=== PATIENT | female | born 1995 | race Caucasian/White ===

== ENCOUNTER 2024-08-27 14:20 | Outpatient (CLI) | payer BC, SELFPAY ==
[2024-08-27 19:37] LABS: Chlamydia DNA Amplified* NOT DETECTED (No Detected); GC DNA Amplified* NOT DETECTED (No Detected)
[2024-08-30 12:19] LABS: HPV Source Cervix; HPV, High Risk by TMA Not Detected
== END 2024-08-27 14:21 | disposition home or self-care (01) ==
PROVIDERS: Visit Provider Registered Nurse
DX: Z34.91 Encounter for supervision of normal pregnancy, unspecified, first trimester (principal); Z3A.10 10 weeks gestation of pregnancy; Z12.4 Encounter for screening for malignant neoplasm of cervix; Z01.31 Encounter for examination of blood pressure with abnormal findings
CPT/HCPCS: 82565; 82570; 83020; 83021; 84156; 84450; 84460; 84520; 85660; 86592; 86703; 86704; 86706; 86762; 86787; 86803; 86850; 86900; 86901; 87086; 87340; 87491; 87591; 87624; 87625; 88141; 88142

== ENCOUNTER 2024-09-03 11:07 | Outpatient (CLI) | payer BC, SELFPAY | END 2024-09-03 11:08 | disposition home or self-care (01) | LOC: NFLDREF 09-07 18:10 | PROVIDERS: Visit Provider Registered Nurse | DX: Z01.31 Encounter for examination of blood pressure with abnormal findings (principal); O12.10 Gestational proteinuria, unspecified trimester | CPT/HCPCS: 82570; 84156 ==